=== PATIENT | male | born 1975 | race Hispanic/Latino ===

== ENCOUNTER 2016-11-02 06:08 | Emergency (ER) | payer SELFPAY ==
[~2016-11-02] VITALS: Ht 162.6 cm; Wt 68.4 kg
[2016-11-02 06:11] VITALS: BP 167/100; PULSE 62; RESP 19; O2SAT 100
--- NOTE | 2016-11-02 06:24 | ED.REPORT ---
HPI-Abd Pain M Under 42 Date of Service Nov 02, 2016 ED Provider: Gregorio Palm DO Patient is an otherwise healthy 41 year old male who presents to the ED complaining of epigastric pain onset 6 hours ago. Associated symptoms include subjective fever and mild SOB. He denies chest pain, diarrhea, hematochezia, vomiting, or any other symptoms. He does not take any daily medications and has not had primary care for the past 5 years. He took helen seltzer without relief. He has had 2 episodes of similar symptoms over the last month. Nursing Notes Stated Complaint: STOMACH PAIN Chief Complaint: Male Abdominal Pain Nursing Notes Reviewed: Yes Allergies: Coded Allergies: No Known Allergies (Unverified , 11/02/16) Scheduled Famotidine (Pepcid) 40 Mg Tablet 40 MG PO DAILY Scheduled PRN Tramadol (Tramadol) 50 Mg Tablet 50 MG PO QID PRN PRN For Pain General Time Seen by MD: 06:19 Chief Complaint Abdominal pain Hx Obtained From: Patient, Pan Shaker Arrived By: Walk-in Sudden in Onset?: Yes Onset Occurred: 5 - 8 hours ago Symptom Duration: Since onset Past Medical History Past Medical History Denies Past Surgical History None reported Smoking History Unknown if Ever Smoker Social History Alcohol Use: Denies alcohol use Other Social History: Local resident Ambulatory Status Independent Review of Systems Constitutional: Reports: Fever Respiratory: Reports: Shortness of breath Cardiovascular: Denies: Chest pain GI: Reports: Abdominal pain, Denies: Diarrhea, Hematochezia, Vomiting Complete sys rev & neg: except as marked. Physical Exam Initial Vital Signs Vital Signs (First) Date Time Temp Pulse Resp B/P Pulse Ox O2 Delivery O2 Flow Rate FiO2 11/02/16 06:11 36.7 62 19 167/100 100 Room Air Initial VS: Reviewed Head / Eyes: Atraumatic, Normocephalic Neck: Full range of motion Neurologic: Alert, Oriented, Nonfocal Psychiatric: Mood/affect normal, Behavior normal, Normal thought content General/Constitutional: Awake, Alert, No acute distress Respiratory / Chest: Breath sounds NL, Breath sounds = bilat, No respiratory distress Cardiovascular: Heart rate NL, Regular rhythm, Heart sounds NL Abdomen: Atraumatic, Soft, McBurney's non-tender Epigastric tenderness Reardon's sign negative Back: Atraumatic Skin: Color NL, Warm, Dry Interpretation & Diagnostics Lab Results Interpretation Result Diagram: 11/02/16 0654 11/02/16 0654 Test 11/02/16 06:54 White Blood Count 14.1th/mm3 (3.8-10.1) Red Blood Count 5.22mil/mm3 (4.40-5.80) Hemoglobin 15.9g/dL (13.8-17.2) Hematocrit 47.0% (41.0-50.0) Mean Corpuscular Volume 90.0fL (81-100) Mean Corpuscular Hemoglobin 30.5pg (27.0-35.0) Mean Corpuscular Hemoglobin Concent 33.8% (32.0-37.0) Red Cell Distribution Width 13.0% (12.3-15.4) Platelet Count 233bil/L (150-400) Neutrophils (%) (Auto) 74.1% (40-74) Lymphocytes (%) (Auto) 21.1% (14-46) Monocytes (%) (Auto) 3.8% (4-12) Eosinophils (%) (Auto) 0.4% (0-5) Basophils (%) (Auto) 0.3% (0-3) Sodium Level 139mEq/L (134-144) Potassium Level 3.9mEq/L (3.5-5.2) Chloride Level 102mEq/L (97-108) Carbon Dioxide Level 25mmol/L (18-29) Blood Urea Nitrogen 12mg/dL (6-20) Creatinine 0.68mg/dL (0.76-1.27) Estimat Glomerular Filtration Rate 138mL/min (>59) Glucose Level 136mg/dL (60-99) Calcium Level 9.0mg/dL (8.5-10.1) Magnesium Level 1.8mg/dL (1.6-2.6) Total Bilirubin 0.2mg/dL (0.0-1.2) Aspartate Amino Transf (AST/SGOT) 16U/L (0-50) Alanine Aminotransferase (ALT/SGPT) 29U/L (0-44) Alkaline Phosphatase 119U/L (25-150) Troponin T 0.010ug/L (0.0-0.011) Total Protein 7.5g/dL (6.4-8.4) Albumin 4.4g/dL (3.4-5.0) Lipase 31U/L (13-60) Hold Lawrence Top Tube Received (Received) ECG Interpretation ECG Interpretation: Sinus rate 64 incomplete RBBB Early repolarization Time: 06:44 Interpreted by: ED physician CT Abd / Pelvis Interpretation IMPRESSION: 1. No acute intra-abdominal findings. Normal appendix. Dictated by: Kristan Nunez M.D. on 11/02/2016 at 8:26 Approved by: Kristan Nunez M.D. on 11/02/2016 at 8:29 Study type: Abdominal CT IV contrast Interpretation / Wet Read by: Interpret - Radiologist Re-Eval/Medical Decision Med Decision/Clinical Course No obvious life-threatening pathology. Patient has serially reassuring abdominal exams, he does have epigastric tenderness without rebound or guarding. Workup is otherwise unremarkable. Patient is stable for discharge and will be given strict return and follow-up precautions. Pepcid and tramadol prescribed. Patient had a GI cocktail with no relief. Morphine helped his pain at first but then it returned. Re-Evaluation/Progress : Time of Eval: 09:19 )( Re-Eval Abdomen: Soft Re-Evaluation/Progress Note: Discussed plan for discharge. Patient understands and agrees with plan. All questions addressed at this time. Counseled Regarding: Diagnosis, Lab results, Need for follow-up, When/why to return to ED Patient Discharge & Departure Primary Impression: Epigastric pain Disposition: Home Discharge Condition All VS Reviewed: Yes Condition: Improved Patient Instructions: Epigastric Pain (ED) Additional Instructions: Your labs are reassuring. Take Pepcid, Tylenol, tramadol as needed for discomfort. Call a primary care doctor for close follow-up. Return to the ER as needed for persistent vomiting, high fever, or other concerns. Lynette analisis son rearirmantes. [place] Pepcid, Tylenol, tramadol syed lo necesite para las molestias. Llame a urbano doctor de cabecera para un seguimento mas de cerca. Regrese a la [facility] syed lo necesite por vomito persistente , temperatura justin, otras preocupaciones. 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 IDr. Palm personally performed the history, physical exam and medical decision-making; I reviewed and confirmed the accuracy of the information in the transcribed note. Signed by: Henri Guallpa 11/02/16, [id number] copies to: [facility] Gregorio Palm DO Nov 02, 2016 06:24 HENRI GUALLPA Nov 02, 2016 06:36
[2016-11-02] MEDS ORDERED: LidocaineVisc 2%:Antacid 1:1 10 mL Syringe PO ONE (06:40)
[2016-11-02] MEDS ORDERED: Ondansetron 2 mg/mL 2 mL Inj IVPUSH PRN (06:40)
[2016-11-02 07:06] LABS: BASOPHILS % (AUTO) 0.3 % (0-3); EOSINOPHILS % (AUTO) 0.4 % (0-5); MONOCYTES % (AUTO) 3.8 % (4-12); Mean Corpuscular Hemoglobin 30.5 pg (27.0-35.0); NEUTROPHILS % (AUTO) 74.1 % (40-74); Platelet Count 233 bil/L (150-400)
[2016-11-02 07:35] LABS: Magnesium 1.8 mg/dL (1.6-2.6)
--- NOTE | 2016-11-02 08:31 | DRSVH ---
PROCEDURE: CT ABDOMEN AND PELVIS WITH CONTRAST ([id number]) INDICATIONS: upper abd pain, leukocytosis TECHNIQUE: After the administration of intravenous contrast, 5 mm thick sections acquired from the diaphragm to the symphysis. 5 mm coronal and sagittal reformats were acquired. For radiation dose reduction, the following was used: automated exposure control, adjustment of mA and/or kV according to patient siz e. COMPARISON: None. FINDINGS: Image quality: Excellent. ABDOMEN: Lung bases: Lung bases are clear. Heart size is normal. Solid organs: Liver and spleen are normal in size and enhancement. Gallbladder is unremarkable. Bi liary system is non dilated. Pancreas enhances normally. No adrenal nodules. Kidneys demonstrate n ormal size and enhancement, without hydronephrosis. Peritoneum and bowel: Bowel loops demonstrate normal wall thickness and caliber. The appendix is thi n walled and gas filled. No free fluid or air. Nodes and vessels: No retroperitoneal or mesenteric adenopathy by size criteria. Aorta and inferior vena cava are normal in size. Miscellaneous: No ventral hernias. PELVIS: Genitourinary: Bladder wall thickness is normal. Miscellaneous: No inguinal hernias or adenopathy. Bones: No suspicious bony lesions. No vertebral body compression fractures. IMPRESSION: 1. No acute intra-abdominal findings. Normal appendix. Dictated by: Kristan Nunez M.D. on 11/02/2016 at 8:26 Approved by: Kristan Nunez M.D. on 11/02/2016 at 8:29
[2016-11-02 08:38] VITALS: BP 133/83; PULSE 63; RESP 12; O2SAT 100
[2016-11-02] MEDS ORDERED: FAMO40TA72 PO (09:18)
[2016-11-02] MEDS ORDERED: TRAM50TA2 PO (09:18)
[2016-11-02 09:30] VITALS: BP 133/83; PULSE 63; RESP 12; O2SAT 100
== END 2016-11-02 09:25 | disposition home or self-care (01) ==
LOC: SED 06:08
DX: R10.13 Epigastric pain (principal); R50.9 Fever, unspecified; R06.02 Shortness of breath
CPT/HCPCS: 36415; 74177; 80053; 83690; 83735; 84484; 85025; 93005; 96374; 96375; 96376; 99285; J2270; J2405; Q9967